=== PATIENT | male | born 1980 | race Two or more races ===

== ENCOUNTER 2019-01-28 20:33 | Emergency (ER) | payer MEDICAID, OTHER ==
[~2019-01-28] VITALS: Ht 182.9 cm; Wt 124.7 kg
--- NOTE | 2019-01-28 22:30 | NUR ---
PATIENT WAS CALLED TO BE PLACED IN ROOM. PATIENT WAS NOT PRESENT
--- NOTE | 2019-01-28 23:00 | NUR ---
PATIENT WAS CALLED. PATIENT WAS NOT PRESENT
--- NOTE | 2019-01-29 00:14 | NUR ---
PATIENT WAS TRIAGED BUT NOT SEEN BY [facility]
== END 2019-01-29 00:16 | disposition left against medical advice (07) ==
LOC: ER 20:33
DX: Z53.21 Procedure and treatment not carried out due to patient leaving prior to being seen by health care provider (principal)
CPT/HCPCS: A4663